=== PATIENT | female | born 2000 | race African-American/Black ===

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

== ENCOUNTER 2021-11-01 18:54 | Emergency (ER) | payer OTHER ==
[~2021-11-01] VITALS: Ht 172.7 cm; Wt 70.0 kg
[~2021-11-01 18:54] MED LIST changes: +NAPROSYN250 MG PO
[2021-11-01 19:04] VITALS: BP 115/71
[2021-11-01] MEDS ORDERED: AMOXICILLIN500 MG PO (19:13)
[2021-11-01 19:16] VITALS: BP 116/73
[2021-11-01 19:30] VITALS: BP 111/72
[2021-11-01 19:45] VITALS: BP 121/76
== END 2021-11-01 19:48 | disposition home or self-care (01) ==
LOC: ED 18:54
DX: J03.90 Acute tonsillitis, unspecified (principal); J45.909 Unspecified asthma, uncomplicated

== ENCOUNTER 2024-02-05 18:52 | Emergency (ER) | payer OTHER ==
[~2024-02-05] VITALS: Ht 175.3 cm; Wt 99.0 kg
[2024-02-05 19:03] VITALS: BP 115/65
[2024-02-05] MEDS ORDERED: FISH OIL1000 M1 PO (19:10)
[2024-02-05] MEDS ORDERED: PRENATA7 PO (19:10)
[2024-02-05] MEDS ORDERED: FOLIC ACID1 MG PO (19:10)
[2024-02-05 19:15] VITALS: BP 109/63
[2024-02-05] MEDS ORDERED: ASPIRIN 81 MG/TAB PO ONE (19:15)
[2024-02-05] MEDS ORDERED: traMADol HCL 50 MG/TAB PO ONE (19:15)
[2024-02-05 19:30] VITALS: BP 114/64
[2024-02-05 19:34] LABS: BASO% 0.5 % (0-3); EOS% 2.5 % (0-8); HEMOGLOBIN 10.4 g/dl (12.0-16.0); IMMATURE GRANULOCYTES 0.5 % (0.0-5.0); MEAN CELL VOLUME 90.1 fL CALC (80.0-100.0); MEAN CORPUSCULAR HGB 30.2 pG CALC (26.0-32.0); MEAN CORPUSCULAR HGB CONC 33.5 g/dL CAL (32.0-36.0); MONO% 9.7 % (2-13); NEUT# 4.18 thou/uL (2.00-7.15); NEUT% 68.8 % (42-76); RED BLOOD COUNT 3.44 mill/uL (4.20-5.60); RED CELL DISTRI WIDTH 12.5 % (11.5-15.5)
[2024-02-05 19:45] VITALS: BP 107/67
[2024-02-05 19:49] LABS: D-DIMER 0.69 mg/L (0.19-0.60)
[2024-02-05 19:49] LABS: URINE BILIRUBIN - DIPSTICK Negative (NEGATIVE); URINE BLOOD DIPSTICK Negative (NEGATIVE); URINE GLUCOSE - DIPSTICK Negative (NEGATIVE); URINE KETONE Negative (NEGATIVE); URINE LEUK ESTERASE Negative (NEGATIVE); URINE NITRITE - DIPSTICK Negative (Negative); URINE PH 6.5 (4.5-8.0); URINE PROTEIN - DIPSTICK Negative (NEG-TRACE); URINE UROBILINOGEN - DIPSTICK 0.2 E.U./dL (0.2)
[2024-02-05 19:50] LABS: URINE COLOR Yellow
[2024-02-05 19:51] LABS: ALKALINE PHOSPHATASE 44 u/l (38-126); ANION GAP 7 (6-22 (CALC)); BUN 7 mg/dL (7-17); BUN/CREATININE RATIO 10 (12-20 (CALC)); CARBON DIOXIDE 24 mmol/l (22-30); CHLORIDE 107 mmol/l (95-108); CREATININE 0.8 mg/dL (0.5-1.0); ESTIMATED GFR 105 ML/MIN (>=90 (CALC)); LIPASE 101 u/l (23-300); POTASSIUM 3.5 mmol/l (3.5-5.1); SGOT/AST 35 u/l (14-36); SODIUM 133 mmol/l (137-146); TOTAL PROTEIN 6.6 g/dL (6.3-8.2)
[2024-02-05 19:55] LABS: ALBUMIN 3.8 g/dL (3.2-5.0); BILIRUBIN, TOTAL 0.1 mg/dL (0.02-1.3)
[2024-02-05 20:00] VITALS: BP 111/63
[2024-02-05 20:00] LABS: ACT PARTIAL THROMBO TIME 26.4 SECONDS (20.0-32.5)
[2024-02-05 20:02] LABS: PROTHROMBIN TIME 9.4 SECONDS (9.0-12.5)
[2024-02-05 20:15] VITALS: BP 117/72
[2024-02-05] MEDS ORDERED: MAGNESIUM CITRATE 296 ML/BTL PO ONE (20:15)
[2024-02-05] MEDS ORDERED: Polyethylene Glycol 3350 17 GM/PKT PO ONE (20:15)
== END 2024-02-05 20:31 | disposition home or self-care (01) | DRG 313 ==
LOC: ED 18:52
PROVIDERS: Family Medicine
DX: R07.89 Other chest pain (principal); K59.00 Constipation, unspecified; J45.909 Unspecified asthma, uncomplicated